=== PATIENT | female | born 2000 | race African-American/Black ===

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

== ENCOUNTER 2021-09-22 17:43 | Emergency (ER) | payer OTHER ==
[2021-09-22 18:37] LABS: Urine Blood 2+ (Negative); Urine Glucose Negative (Negative); Urine Protein Negative (Negative); Urine Specific Gravity >=1.030 (1.005-1.030)
[2021-09-22 18:42] LABS: Absolute Lymphocytes (CBC) 2.1 K/uL (0.7-4.9); Basophils % 0.6 % (0-1.3); Hematocrit 34.9 % (36.0-45.0); Lymphocytes % 44.5 % (15.3-44.8); MPV 8.3 fL (7.6-11.3); RBC Red Blood Cell Count 4.18 M/uL (3.86-4.86)
[2021-09-22 19:21] LABS: BUN Blood Urea Nitrogen 7 mg/dL (7-18); Bicarbonate 26 mmol/L (21-32); Glucose Level 83 mg/dL (74-106); HCG, Quantitative 1036 mIU/mL (1-3); Potassium 3.6 mmol/L (3.5-5.1); Sodium Level 140 mmol/L (136-145)
--- NOTE | 2021-09-22 20:03 | RAD REPORT ---
EXAM DESCRIPTION: US - Transvaginal OB - 09/22/2021 7:29 pm CLINICAL HISTORY: Abd cramping, ;Vaginal bleeding COMPARISON: <Comparisons> FINDINGS: No normal IUP identified. Thickened endometrium measuring 11 millimeters. Irregular cystic structure located in the lower uterine segment. The right ovary measures 2 cm x 1.6 cm x 1.9 cm with volume of 3.1 cc. The left ovary measures 1.8 cm x 1.6 cm x 1.7 cm with volume of 2.5 cc . Bilateral ovarian blood flow. IMPRESSION: No normal IUP identified. Irregular cystic structure in the lower uterine segment could reflect a failed first trimester but suggest correlating with b-HCG and short term follow-u p ultrasound.
--- NOTE | 2021-09-22 20:14 | EDPHYS ---
Physician Documentation [facility] Name: Leonila Guardado Age: 21 yrs Sex: Female : 2000 Arrival Date: 09/22/2021 Time: 17:44 Bed 14 Private MD: Andrew Cage B ED Physician Anastacio Lucio HPI: 09/22 19:31 This 21 yrs old Black Female presents to ER via Ambulatory with complaints of Vaginal jr8 Bleeding, + Preg <12wks, Pelvic Pain. 19:31 The patient presents to the emergency department with vaginal bleeding, that is light, jr8 with clots. The estimated gestational age is 7 weeks. course: care: none, Leakage of Fluid: none appreciated, Ultrasound: the patient has not had an ultrasound, Risk/complications: no obvious risks or complications are appreciated. Previous pregnancies: in previous pregnancies patient has had vaginal delivery. Associated signs and symptoms: The patient has no apparent associated signs or symptoms. The patient has experienced a previous episode. The patient has not recently seen a physician. Patient stated that she has had 24 hours of bleeding and cramping. Has had this in one other in the past which ended up in spontaneous . . 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 - Social history:: Smoking status: Reported history of juuling and/or vaping. Patient uses street drugs, marijuana. ROS: 19:31 Eyes: Negative for injury, pain, redness, and discharge, ENT: Negative for injury, jr8 pain, and discharge, Neck: Negative for injury, pain, and swelling, Cardiovascular: Negative for chest pain, palpitations, and edema, Respiratory: Negative for shortness of breath, cough, wheezing, and pleuritic chest pain, Abdomen/GI: Negative for abdominal pain, nausea, vomiting, diarrhea, and constipation, Back: Negative for injury and pain, MS/Extremity: Negative for injury and deformity, Skin: Negative for injury, rash, and discoloration, Neuro: Negative for headache, weakness, numbness, tingling, and seizure. 19:31 : Positive for pelvic pain, vaginal bleeding. Exam: 19:31 Constitutional: This is a well developed, well nourished patient who is awake, alert, jr8 and in no acute distress. Cardiovascular: Regular rate and rhythm with a normal S1 and S2. No gallops, murmurs, or rubs. Normal PMI, no JVD. No pulse deficits. Respiratory: Lungs have equal breath sounds bilaterally, clear to auscultation and percussion. No rales, rhonchi or wheezes noted. No increased work of breathing, no retractions or nasal flaring. Abdomen/GI: Soft, non-tender, with normal bowel sounds. No distension or tympany. No guarding or rebound. No evidence of tenderness throughout. Back: No spinal tenderness. No costovertebral tenderness. Full range of motion. Skin: Warm, dry with normal turgor. Normal color with no rashes, no lesions, and no evidence of cellulitis. MS/ Extremity: Pulses equal, no cyanosis. Neurovascular intact. Full, normal range of motion. Neuro: Awake and alert, GCS 15, oriented to person, place, time, and situation. Cranial nerves II-XII grossly intact. Motor strength 5/5 in all extremities. Sensory grossly intact. Vital Signs: 18:09 BP 113 / 90; Pulse 84; Resp 16; Temp 97.9; Pulse Ox 100% ; Weight 57.15 kg; Height 5 vg1 ft. 7 in. (170.18 cm); Pain 6/10; 18:25 BP 118 / 92; Pulse 80; Resp 18; Pulse Ox 100% on R/A; ld1 19:42 BP 121 / 88; Pulse 76; Resp 18; Pulse Ox 100% on R/A; ld1 18:09 Body Mass Index 19.73 (57.15 kg, 170.18 cm) vg1 MDM: 18:13 Patient medically screened. jr8 19:31 Data reviewed: vital signs, nurses notes, lab test result(s), radiologic studies, 8 ultrasound. Data interpreted: Pulse oximetry: on room air is 100 %. Interpretation: normal. Counseling: I had a detailed discussion with the patient and/or guardian regarding: the historical points, exam findings, and any diagnostic results supporting the discharge/admit diagnosis, lab results, radiology results. 20:14 ED course: Discussed with patient that this is most likely an incomplete . jr8 Needs f/u to have repeat HCG and US in by end of week. Patient understood and knows to come back if bleeding were to worsen or she feel worse . 09/22 18:14 Order name: Abo/rh Typing [facility] 09/22 18:14 Order name: Basic Metabolic Panel [facility] 09/22 18:14 Order name: CBC with Diff; Complete Time: 19:33 8 09/22 18:14 Order name: Quantitative Hcg; Complete Time: 19:33 [facility] 09/22 18:15 Order name: ABO/RH typing; Complete Time: 18:56 EDMS 09/22 18:15 Order name: Basic Metabolic Panel; Complete Time: 19:33 EDMS 09/22 18:14 Order name: IV Saline Lock; Complete Time: 18:37 [facility] 09/22 18:14 Order name: Labs collected and sent; Complete Time: 18:37 [facility] 09/22 18:14 Order name: NPO; Complete Time: 18:19 [facility] 09/22 18:14 Order name: Urine Dipstick-Ancillary (obtain specimen); Complete Time: 18:36 [facility] 09/22 18:14 Order name: Urine Test (obtain specimen); Complete Time: 18:36 [facility] 09/22 18:37 Order name: Urine --Ancillary (enter results) 09/22 18:37 Order name: Urine Dipstick-Ancillary; Complete Time: 18:43 EDMT 09/22 18:44 Order name: US Transvaginal Ob; Complete Time: 20:09 jr Administered Medications: No medications were administered Disposition: 09/23 07:06 Co-signature as Attending Physician, Anastacio Lucio MD I agree with the assessment and negin plan of care. Disposition Summary: 09/22/21 20:13 Discharge Ordered Location: Home [facility] Problem: new jr8 Symptoms: have improved jr8 Condition: Stable jr8 Diagnosis - Incomplete spontaneous without complication jr8 Followup: jr8 - With: Andrew Cage MD - When: 2 - 3 days - Reason: Recheck today's complaints, Continuance of care, Re-evaluation by your physician Discharge Instructions: - Discharge Summary Sheet jr8 - Incomplete Miscarriage jr8 Forms: - Medication Reconciliation Form jr8 - Thank You Letter jr8 - Antibiotic Education jr8 - Prescription Opioid Use jr8 Signatures: Dispatcher [employer] Anastacio Roa MD MD cha Roszak, Josh, PA PA jr8 Saima Sesay, RN RN vg1
--- NOTE | 2021-09-22 20:14 | ER ---
Nurse's Notes [facility] Name: Leonila Guardado Age: 21 yrs Sex: Female : 2000 Arrival Date: 09/22/2021 Time: 17:44 Bed 14 Private MD: Andrew Cage B Diagnosis: Incomplete spontaneous without complication Presentation: 09/22 18:09 Chief complaint: Patient states: bleeding and cramping began yesterday; states light vg1 flow that is pinkish/red in color with small clots, states is approximately 7 weeks according to tracker. states LMP was 07/06/21 and took test on 09/07/21 and results were positive. pt has not seen a NUCLEAR MEDICINE TECHNOLOGIST. Coronavirus screen: Vaccine status: Patient reports receiving the 2nd dose of the covid vaccine. Ebola Screen: Patient negative for fever greater than or equal to 101.5 degrees Fahrenheit, and additional compatible Ebola Virus Disease symptoms. Initial Sepsis Screen: Does the patient meet any 2 criteria? No. Patient's initial sepsis screen is negative. Does the patient have a suspected source of infection? No. Patient's initial sepsis screen is negative. Risk Assessment: Do you want to hurt yourself or someone else? Patient reports no desire to harm self or others. Onset of symptoms was September 21, 2021. 18:09 Method Of Arrival: Ambulatory vg1 18:09 Acuity: LINA 3 vg1 Triage Assessment: 18:11 General: Appears in no apparent distress. uncomfortable, Behavior is calm, cooperative. vg1 Pain: Complains of pain in lower ABD Pain currently is 6 out of 10 on a pain scale. Quality of pain is described as crampy, pressure. : Reports vaginal bleeding that is bright red, with clots, light flow. 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 - Social history:: Smoking status: Reported history of juuling and/or vaping. Patient uses street drugs, marijuana. Screenin:25 Abuse screen: Denies threats or abuse. Denies injuries from another. Nutritional ld1 screening: No deficits noted. Tuberculosis screening: No symptoms or risk factors identified. Fall Risk None identified. Assessment: 18:25 Obstetrical Assessment:. General: Appears in no apparent distress. comfortable, ld1 Behavior is calm, cooperative, appropriate for age. Pain: Denies pain. Neuro: Level of Consciousness is awake, alert, obeys commands, Oriented to person, place, time, situation. Cardiovascular: Capillary refill < 3 seconds Patient's skin is warm and dry. Respiratory: Airway is patent Respiratory effort is even, unlabored, Respiratory pattern is regular, symmetrical. GI: Abdomen is flat, non-distended. : Reports vaginal bleeding that is bright red, moderate flow. EENT: No signs and/or symptoms were reported regarding the EENT system. Derm: No signs and/or symptoms reported regarding the dermatologic system. Musculoskeletal: No signs and/or symptoms reported regarding the musculoskeletal system. Vital Signs: 18:09 BP 113 / 90; Pulse 84; Resp 16; Temp 97.9; Pulse Ox 100% ; Weight 57.15 kg; Height 5 vg1 ft. 7 in. (170.18 cm); Pain 6/10; 18:25 BP 118 / 92; Pulse 80; Resp 18; Pulse Ox 100% on R/A; ld1 19:42 BP 121 / 88; Pulse 76; Resp 18; Pulse Ox 100% on R/A; ld1 18:09 Body Mass Index 19.73 (57.15 kg, 170.18 cm) vg1 ED Course: 17:44 Patient arrived in ED. as 17:44 Andrew Cage MD is Private Physician. as 18:11 Triage completed. vg1 18:11 Arm band placed on. vg1 18:13 Eduard Rojas PA is PHCP. jr8 18:13 Anastacio Lucio MD is Attending Physician. jr8 18:23 Katerine Meier, AYLIN is Primary Nurse. ld1 18:25 Patient has correct armband on for positive identification. Placed in gown. Bed in low ld1 position. Call light in reach. Side rails up X2. Pulse ox on. NIBP on. Door closed. Noise minimized. Warm blanket given. 18:25 No provider procedures requiring assistance completed. ld1 18:37 Inserted saline lock: 20 gauge in left antecubital area, using aseptic technique. Blood ld1 collected. 19:29 Transvaginal Ob In Process Unspecified. EDMS 20:10 Andrew Cage MD is Referral Physician. jr8 20:22 IV discontinued, intact, bleeding controlled, No redness/swelling at site. ld1 Administered Medications: No medications were administered Outcome: 20:13 Discharge ordered by . jr8 20:22 Discharged to home ambulatory, with family. ld1 20:22 Condition: stable 20:22 Discharge instructions given to patient, Instructed on discharge instructions, follow up and referral plans. Demonstrated understanding of instructions, follow-up care. 20:22 Patient left the ED. ld1 Signatures: Dispatcher [employer] [facility]VA Liv Matute Josh, PA PA jr8 Saima Sesay, RN RN vg1 Katerine Meier RN RN ld1
[2021-09-22 20:30] VITALS: TEMP 97.9; O2SAT 100
[2021-09-22 20:33] LABS: Urine Specific Gravity/Preg >1.030 (1.005-1.030)
[2021-09-22 20:34] VITALS: BP 121/88
== END 2021-09-22 20:22 | disposition home or self-care (01) ==
LOC: ER 17:43
DX: O03.9 Complete or unspecified spontaneous abortion without complication (principal)
CPT/HCPCS: 36415; 76817; 80048; 81003; 81025; 84702; 85025; 86900; 86901; 99284

== ENCOUNTER 2022-05-22 20:31 | Emergency (ER) | payer OTHER ==
--- OUTSIDE RECORDS SUMMARY | 2022-05-22 20:34 | XMS REPORT | Continuity of Care Document ---
:2000 Author Organization [facility] t Address [address] [place] [address] Dr. [address] [place] [address] Care Team Providers Name Role Phone Ann Couch Primary Care Physician Love Manzanares MD Attending Clinician Nurse, [facility] Women's [facility] Attending Clinician Unavailable LOVE MANZANARES Attending Clinician Unavailable LOVE MANZANARES Admitting Clinician Unavailable Love Manzanares MD Admitting Clinician Payers Payer Name Policy Type Policy Number Effective Date Expiration Date Formerly [facility] [id number] 2022 [facility] MEDICAID 00:00:00 Problems This patient has no known problems. Allergies, Adverse Reactions, Alerts Allergy Allergy Status Severity Reaction(s) Onset Inactive Treating Comm ents Source Name Type Date Date Clinician NO KNOWN Drug Active Univers ALLERGIE Class ity of S [facility] Social History Social Habit Start Date Stop Date Quantity Comments Source ASSERTION 2021-10-06 [facility] 00:00:00 [facility] Exposure to 2022-02-06 2022-02-16 Not sure [facility] SARS-CoV-2 (event) 00:00:00 11:13:00 Medica l Branch Sex Assigned At [birth year] [facility] 00:00:00 00:00:00 [facility] Smoking Status Start Date Stop Date Source Unknown if ever smoked [facility] Medications Ordered Filled Start Stop Current Ordering Indication Dosage Frequency Signature Comments Components Source Medication Medication Date Date Medication? Clinician (SIG) Name Name cefTRIAXone 2021- No [id number] 500mg Univers (ROCEPHIN) 02-16 ity of injection 17:45: 16:36 [place] 500 mg 00 :00 Medical Branch cefTRIAXone 2021- No [id number] 500mg 500 mg, Univers (ROCEPHIN) 02-16 Intramuscu it y of injection 17:45: 16:36 [place]CE, [place] 500 mg 00 :00 1 dose, On Medical 02/16/22 Branch at 1245, RAYMOND
Re ason for Anti-Infec tive: Documented Infection< br>Documen bobby Infection Site: Pelvic
Duration of Therapy: 7 days PNV Yes Take by Univers no.95/arianna 5-02 mouth. ity of 11:30: [place] fum/folic [address] [place] [address] ( ORAL) PNV Yes Take by Univers no.95/arianna 5-02 mouth. ity of 11:30: [place] fum/folic 09 [facility] ( ORAL) PNV Yes Take by Univers no.95/arianna 5-02 mouth. ity of 11:30: [place] fum/folic 09 [facility] ( ORAL) Nitrofurant 2021- No 100mg 100 mg, U nivers oin&Nit. 02-12 Oral, ity of [place] 23:45: 22:55 ONCE, 1 Aidan as (MACROBID) 00 :00 dose, On Medic al 100 mg [facility] Branch capsule 100 02/12/22 at mg 1845, Routine
Reason for Anti-Infec tive: Empiric Therapy for Suspected Infection< br>Empiric Therapy Site: Urine
D uration of therapy: 7 days D5W-LR IV Yes 1000mL at 150 Univ ers infusion -28 mL/hr, IV ity of 1,000 mL 20:45: [place] CONTINUOUS Medical , Starting Branch on Radha 02/12/22 at 1545, Until Discontinu ed, Routine NaCl 0.9% 2021- No 500mL at 999 Univ ers (NS) bolus 02-12- mL/hr, 500 it y of infusion 20:45: 20:30 mL, IV [place] 500 mL 00 :00 Infusion, Medical ONCE, 1 Branch dose, On Radha 02/12/22 at 1545, STAT metoclopram 0 Yes 10mg 10 mg, Univ ers naa HCl 02-12 Slow IV ity of (REGLAN) 19:48: Push, [place] injection 00 Q6HPRN, Medical 10 mg Starting Branch on Radha 02/12/22 at 1448, Until Discontinu ed, Routine, Nausea and Vomiting (N/V) Nitrofurant 2021-0 Yes [id number] 100mg Take 1 Univers oin&Nit. 4-28 capsule by ity o f [place] 00:[place]: mouth 2 [place] 100 mg 00 (two) Medical capsule times Branch daily. Nitrofurant 2021-0 Yes [id number] 100mg Take 1 Univers oin&Nit. 4-28 capsule by ity o f [place] 00:[place]: mouth [place] 100 mg 00 (two) Medical capsule times Branch daily. Nitrofurant 2021-0 Yes [id number] 100mg Take 1 Univers oin&Nit. 4-28 capsule by ity o f [place]: mouth [place] 100 mg 00 (two) Medical capsule times Branch daily. Nitrofurant 2021-0 Yes [id number] 100mg Take 1 Univers oin&Nit. 4-28 capsule by ity o f [place] 00:00: mouth [place] 100 mg 00 (two) Medical capsule times Branch daily. Vital Signs Vital Name Observation Time Observation Value Comments Source Systolic blood 2022-02-16 16:28:00 103 mm[Hg[facility] Diastolic blood 2022-02-16 16:28:00 65 mm[Hg] [facility] Body temperature 2022-02-16 16:28:00 36.83 Yajaira [facility] Respiratory rate 2022-02-16 16:28:00 18 /min [facility] Body height 2022-02-16 16:28:00 170.2 cm [facility] Body weight 2022-02-16 16:28:00 59.875 kg [facility] BMI 2022-02-16 16:28:00 20.67 kg/m2 [facility] Branch Systolic blood 2022-02-12 18:37:00 116 mm[Hg] Univer sity of pressure [facility] Diastolic blood 2022-02-12 18:37:00 67 mm[Hg] [facility] Heart rate 2022-02-12 18:37:00 90 /min [facility] Respiratory rate 2022-02-12 18:37:00 16 /min [facility] Body height 2022-02-12 18:37:00 172.7 cm Universi [facility] Body weight 2022-02-12 18:37:00 [facility] 2022-02-12 18:37:00 20.19 kg/m2 [facility] Body temperature 2022-02-12 18:03:00 36.39 Yajaira [facility] Oxygen saturation in 2022-02-12 18:03:00 100 /min [facility] blood by [facility] Pulse oximetry Branch Procedures Procedure Date / Time Performed Performing Clinician Sourc e AMYLASE 2022-02-12 20:31:00 Love Manzanares [facility] LIPASE 2022-02-12 20:31:00 Jose [facility] COMP. METABOLIC PANEL 2022-02-12 20:31:00 Love Manzanares [facility] ([id number]) Medical Branch CBC WITH DIFF 2022-02-12 20:31:00 Love Manzanares [facility] URINALYSIS 2022-02-12 20:31:00 Cielo Manzanaresen Julian [facility] COVID-19 (ID NOW RAPID 2022-02-12 20:31:00 Love Manzanares [facility] TESTING) Medical Branch CONSENT/REFUSAL FOR 2022-02-12 18:03:32 Doctor Unassigned, [facility] AND Name Medical Branch TREATMENT NOTICE OF PRIVACY 2022-02-12 17:48:58 Doctor Unassigned, No Univ [facility] PRACTICES Name Medical Branch Encounters Start End Encounter Admission Attending Care Care Encounter Source Date/Time Date/Time Type Type Clinicians Facility Department ID 2022-02-16 Outpatient X [facility] [id number] Univers 11:29:47 ity of [facility] 2022-02-18 2022-02-18 Telephone Love Manzanares MOEDY [facility] [id number] Univers 00:00:00 00:00:00 Julian CODY [id number] it [place] [facility] [place] [facility] [id number] [address] 2022-02-16 2022-02-16 Nurse Nurse, [facility] [id number] Univers 10:30:00 11:41:01 [id number].686 [facility] [id number] [address] 2022-02-16 2022-02-16 Outpatient R LOVE MANZANARES [facility] [id number] Univers 10:30:00 10:30:00 ity of [facility] 2022-02-16 2022-02-16 Letter Nurse, [facility] [id number] Univers 00:00:00 00:00:00 (Out) [facility] [id number] i ty [facility] 4.2.7.2.686 [id number] [address] 2022-02-12 2022-02-12 Outpatient X LOVE MANZANARES [facility] [place] [id number] Univers 13:14:00 18:18:00 ity of [facility] 2022-02-12 2022-02-12 Emergency Love Manzanares [facility] [id number] Univers 13:14:00 18:18:00 Julian MOCK [id number] i ty [facility] [place] [id number] [address] Results Test Description Test Time Test Comments Results Result Comments Source COMP. METABOLIC PANEL ([id number]) 2022-02-12 21:10:59 Test Item Value Reference Range Interpretation Comme nts NA (test code = 2505199860) 134 mmol/L 135-145 L K (test code = 9442603030) 4.1 mmol/L 3.5-5.0 CL (test code = 7260507640) 101 mmol/L 98-108 CO2 TOTAL (test code = 1819993239) 25 mmol/L 23-31 AGAP (test code = 1931267432) 2-16 BUN (test code = 5752945643) 4 mg/dL 7-23 L GLUCOSE (test code = 8038511099) 78 mg/dL 70-110 CREATININE (test code = 0.46 mg/dL 0.50-1.04 L 6350236341) TOTAL BILI (test code = 0.5 mg/dL 0.1-1.6 7220632730) CALCIUM (test code = 3764785062) 8.8 mg/dL 8.6-10.6 T PROTEIN (test code = 0011591607) 7.8 g/dL 6.3-8.2 ALBUMIN (test code = 3158602466) 4.1 g/dL 3.5-5.0 ALK PHOS (test code = 9357884317) 66 U/L 34-122 ALTv (test code = 1742-6) 12 U/L 5-35 AST(SGOT) (test code = 4201277122) 24 U/L 13-40 eGFR (test code = 4110749059) mL/min/1.73m2 SONALI (test code = SONALI) Association of Glomerular Filtration Rate (GFR) and Staging of Kidney Disease* + +-------- + ------+| GFR (mL/min/1.73 m2) ?| With Kidney Damage ?| ?Without Kidney Damage+ +-- + +| ?>90 ?| ?Stage one ?| ? Normal ?+ +------- + -------+| ?60-89 ?| ?Stage two ?| ? Decreased GFR ? + +-------- + ------+| ?30-59 ?| ?Stage three ?| ? Stage three ? + +-------- + ------+| ?15-29 ?| ?Stage four ? | ? Stage four ?+ +------- + -------+| ?<15 (or dialysis) ? ?| ?Stage five ? | ? Stage five ?+ +------- + -------+ *Each stage assumes the associated GFR level has been in effect for at least three months. ?Stages 1 to 5, with or without kidney disease, indicate chronic kidney disease. Notes: Determination of stages one and two (with eGFR >59mL/min/1.73 m2) requires estimation of kidney damage for at least three months as defined by structural or functional abnormalities of the kidney, manifested by either:Pathological abnormalities or Markers of kidney damage (including abnormalities in the composition of the blood or urine or abnormalities in imaging tests). Lab Interpretation (test code = Abnormal 73145-5) [facility] 21[facility]10:44 Test Item Value Reference Range Interpretation Comments LIPASE (test code = 4664814634) 43 U/L 0-220 Lab Interpretation (test code = Normal 45915-8) [facility] 21:10:03 Test Item Value Reference Range Interpretation Comments NICOLA (test code = 9878869942) 78 U/L 35-110 Lab Interpretation (test code = Normal 30487-5) [facility] WITH [id number] 21:01:00 Test Item Value Reference Range Interpretation Comments WBC (test code = See_Comment [Automated 6690-2) message] The sy stem which generated this result transmitted reference range : 4.30 - 11.10 10*3/?L. The reference range was not used to interpret this result as normal/abnormal . RBC (test code = See_Comment L [Automated 789-8) message] The sy stem which generated this result transmitted reference range : 3.93 - 5.25 10*6/?L. The reference range was not used to interpret this result as normal/abnormal . HGB (test code = 10.0 g/dL 11.6-15.0 L 718-7) HCT (test code = 32.0 % 35.7-45.2 L 4544-3) MCV (test code = 86.3 fL 80.6-95.5 787-2) MCH (test code = 27.0 pg 25.9-32.8 785-6) MCHC (test code = 31.3 g/dL 31.6-35.1 L 786-4) RDW-SD (test code = 43.9 fL 39.0-49.9 14898-4) RDW-CV (test code = 14.1 % 12.0-15.5 788-0) PLT (test code = See_Comment [Automated 777-3) message] The sy stem which generated this result transmitted reference range : 166 - 358 10*3/ ?L. The reference r carmel was not used to interpret this result as normal/abnormal . MPV (test code = 10.8 fL 9.5-12.9 30840-5) NRBC/100 WBC (test See_Comment [Automat ed code = 7872231973) message] The system which generated this result transmitted reference range : 0.0 - 10.0 /100 WBCs. The refer ence range was not u sed to interpret th is result as normal/abnormal . NRBC x10^3 (test code <0.01 See_Comment [Auto mated = 6195844496) message] The s ystem which generated this result transmitted reference range : 10*3/?L. The reference range was not used to interpret this result as normal/abnormal . GRAN MAT (NEUT) % 83.9 % (test code = 770-8) IMM GRAN % (test code 0.40 % = 7190613756) LYMPH % (test code = 9.1 % 736-9) MONO % (test code = 5.8 % 5905-5) EOS % (test code = 0.7 % 713-8) BASO % (test code = 0.1 % 706-2) GRAN MAT x10^3(ANC) 6.25 10*3/uL 1.88-7.09 (test code = 1095192023) IMM GRAN x10^3 (test 0.03 10*3/uL 0.00-0.06 code = 9191241687) LYMPH x10^3 (test code 0.68 10*3/uL 1.32-3.29 L = 731-0) MONO x10^3 (test code 0.43 10*3/uL 0.33-0.92 = 742-7) EOS x10^3 (test code = 0.05 10*3/uL 0.03-0.39 711-2) BASO x10^3 (test code <0.03 0.01-0.07 = 704-7) Lab Interpretation Abnormal (test code = 66093-3) [facility]"
--- NOTE | 2022-05-22 22:00 | RAD REPORT ---
EXAM DESCRIPTION: USExtremity Venous Uni Ltd05/22/2022 9:45 pm CLINICAL HISTORY: left leg pain COMPARISON: None FINDINGS: Left common femoral, superficial femoral, popliteal and posterior tibial veins are compre ssible and demonstrate augmentation. Rouleaux flow is present within the veins. Grayscale, color and spectral analysis performed on all vessels IMPRESSION: No evidence of deep venous thrombosis involving the left lower extremity. Rouleaux flow is present within the veins. This is often insignificant. If the patient's symptoms do not resolve then a followup ultrasound would be recommended
--- NOTE | 2022-05-22 22:24 | ER ---
Nurse's Notes [facility] Name: Leonila Guardado Age: 22 yrs Sex: Female : 2000 Arrival Date: 05/22/2022 Time: 20:33 Bed 13 Private MD: Diagnosis: Pain in left lower leg Presentation: 05/22 20:41 Chief complaint: Patient states: pain in left calf starting 2 days ago and getting lg3 worse. i was seen by OB today and sent home with order for venous ultrasound that i was going to schedule but the pain is getting worse and its hard for me to walk now. currently 34 weeks . seen by L\T\D before arrival to ED. Coronavirus screen: Client denies travel out of the [place] in the last 14 days. At this time, the client does not indicate any symptoms associated with coronavirus-19. Ebola Screen: No symptoms or risks identified at this time. Initial Sepsis Screen: Does the patient meet any 2 criteria? No. Patient's initial sepsis screen is negative. Does the patient have a suspected source of infection? No. Patient's initial sepsis screen is negative. Risk Assessment: Do you want to hurt yourself or someone else? Patient reports no desire to harm self or others. Onset of symptoms was May 20, 2022. 20:41 Method Of Arrival: Wheelchair lg3 20:41 Acuity: LINA 3 lg3 Triage Assessment: 20:46 General: Appears in no apparent distress. uncomfortable, Behavior is calm, cooperative. lg3 Pain: Complains of pain in left calf. EENT: No deficits noted. No signs and/or symptoms were reported regarding the EENT system. Neuro: No deficits noted. Level of Consciousness is awake, alert, obeys commands, Oriented to person, place, time, situation. Cardiovascular: No deficits noted. Denies chest pain, shortness of breath, Capillary refill < 3 seconds Clubbing of nail beds is absent JVD is absent Patient's skin is warm and dry. Respiratory: No deficits noted. Airway is patent Trachea midline Respiratory effort is even, unlabored, Respiratory pattern is regular, symmetrical. GI: No deficits noted. No signs and/or symptoms were reported involving the gastrointestinal system. : No deficits noted. No signs and/or symptoms were reported regarding the genitourinary system. Derm: No deficits noted. No signs and/or symptoms reported regarding the dermatologic system. Skin is intact, is healthy with good turgor, Skin is dry, Skin temperature is warm. Musculoskeletal: Reports pain in left calf. 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 - Social history:: Smoking status: Patient denies any tobacco usage or history of. Patient/guardian denies using alcohol, street drugs. Screenin:48 Abuse screen: Denies threats or abuse. Nutritional screening: No deficits noted. ll3 Tuberculosis screening: No symptoms or risk factors identified. Fall Risk None identified. Assessment: 21:48 General: Appears comfortable, Behavior is calm, cooperative. Pain: Pain currently is 0 ll3 out of 10 on a pain scale. at worst was 10 out of 10 on a pain scale. Aggravated by Flexing calf muscle, and walking. Neuro: Level of Consciousness is awake, alert, obeys commands, Oriented to person, place, time, situation. Derm: Skin is pink, warm \T\ dry. Musculoskeletal: Circulation, motion, and sensation intact. Reports pain in left calf. Vital Signs: 20:41 BP 107 / 72; Pulse 90; Resp 17 S; Temp 98.2(O); Pulse Ox 100% on R/A; Weight 65.32 kg lg3 (R); Height 5 ft. 8 in. (172.72 cm) (R); Pain 10/10; 20:41 Body Mass Index 21.89 (65.32 kg, 172.72 cm) lg3 ED Course: 20:33 Patient arrived in ED. bp1 20:46 Triage completed. lg3 20:46 Arm band placed on right wrist. lg3 21:04 Berto Forbes NP is PHCP. pm1 21:04 Lui Cuello MD is Attending Physician. pm1 21:47 Extremity Venous Uni Ltd US In Process Unspecified. EDMS 21:48 Patient has correct armband on for positive identification. Bed in low position. Call ll3 light in reach. Side rails up X 1. 21:50 Pineda Veengas, RN is Primary Nurse. ll3 22:33 No provider procedures requiring assistance completed. Patient did not have IV access ll3 during this emergency room visit. Administered Medications: No medications were administered Medication: 22:33 VIS not applicable for this client. ll3 Outcome: 22:24 Discharge ordered by MD. pm1 22:33 Discharged to home ambulatory, with family. ll3 22:33 Condition: stable 22:33 Discharge instructions given to patient, family, Instructed on discharge instructions, follow up and referral plans. Demonstrated understanding of instructions, follow-up care. 22:33 Patient left the ED. ll3 Signatures: Dispatcher [employer] EDMO Berto Forbes, RECREATIONAL VEHICLE REPAIRER RECREATIONAL VEHICLE REPAIRER pm1 Beryl Mcgovern, RN RN lg3 Aletha Ramirez Lynsea, RN RN ll3 Corrections: (The following items were deleted from the chart) 20:50 20:41 Chief complaint: Patient states: pain in left calf starting 2 days ago and lg3 getting worse. i was seen by OB today and sent home with order for venous ultrasound that i was going to schedule but the pain is getting worse and its hard for me to walk now. lg3
--- NOTE | 2022-05-22 22:24 | EDPHYS ---
Physician Documentation [facility] Name: Leonila Guardado Age: 22 yrs Sex: Female : 2000 Arrival Date: 05/22/2022 Time: 20:33 Bed 13 Private MD: ED Physician Lui Cuello HPI: 05/22 21:17 This 22 yrs old Black Female presents to ER via Wheelchair with complaints of Leg Pain. pm1 21:17 The patient presents with pain, that is acute. The complaints affect the left calf. pm1 Context: The problem was sustained at an unknown site, resulted from an unknown cause, the patient can fully bear weight, the patient is able to ambulate. Onset: The symptoms/episode began/occurred 2 day(s) ago. Modifying factors: the symptoms are aggravated by weight bearing, walking. Associated signs and symptoms: Pertinent negatives numbness, swelling, tingling. Treatment prior to arrival includes: no previous treatment. Severity of symptoms: in the emergency department the symptoms are unchanged. The patient has not experienced similar symptoms in the past. 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 patient in L\T\D prior to arrival for evaluation of fetus then sent to the ER for rule out DVT. 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 - Social history:: Smoking status: Patient denies any tobacco usage or history of. Patient/guardian denies using alcohol, street drugs. ROS: 21:20 Constitutional: Negative for fever, chills, and weight loss, Cardiovascular: Negative pm1 for chest pain, palpitations, and edema, Respiratory: Negative for shortness of breath, cough, wheezing, and pleuritic chest pain, Abdomen/GI: Negative for abdominal pain, nausea, vomiting, diarrhea, and constipation, Back: Negative for injury and pain. 21:20 Skin: Negative for injury, rash, and discoloration, Neuro: Negative for headache, weakness, numbness, tingling, and seizure. 21:20 MS/extremity: Positive for pain, of the left calf, Negative for decreased range of motion, deformity. 21:20 All other systems are negative. Exam: 21:20 Constitutional: This is a well developed, well nourished patient who is awake, alert, pm1 and in no acute distress. Head/Face: Normocephalic, atraumatic. 21:20 Skin: Warm, dry with normal turgor. Normal color with no rashes, no lesions, and no evidence of cellulitis. 21:20 Cardiovascular: Exam negative for acute changes, Rate: normal, Rhythm: regular, Pulses: no pulse deficits are appreciated. 21:20 Respiratory: Exam negative for acute changes, respiratory distress, shortness of breath. 21:20 Musculoskeletal/extremity: Extremities: grossly normal except: noted in the left calf: tenderness, There is no evidence of swelling, ROM: intact in all extremities. 21:20 Neuro: Exam negative for acute changes, Orientation: is normal, Mentation: is normal, Motor: is normal, moves all fours. Vital Signs: 20:41 BP 107 / 72; Pulse 90; Resp 17 S; Temp 98.2(O); Pulse Ox 100% on R/A; Weight 65.32 kg lg3 (R); Height 5 ft. 8 in. (172.72 cm) (R); Pain 10/10; 20:41 Body Mass Index 21.89 (65.32 kg, 172.72 cm) lg3 MDM: 21:04 Patient medically screened. pm1 21:17 Data reviewed: vital signs. Data interpreted: Pulse oximetry: on room air is 100 %. pm1 Interpretation: normal. 22:21 Counseling: I had a detailed discussion with the patient and/or guardian regarding: the pm1 historical points, exam findings, and any diagnostic results supporting the discharge/admit diagnosis, radiology results, Recommended CBC and BMP with IV fluids after discussing ultrasound results. Patient reports possibly not drinking enough fluids and I believe that might be a cause for her Rouleau's flow on ultrasound. Explained to patient IV fluids and hydration would likely reverse that condition. Patient did not want an IV or IV fluids and wanted to drink fluid at home. Patient's mother present at bedside. I gave patient a copy of ultrasound, if no improvement resolution of symptoms with p.o. hydration at home recommending follow-up ultrasound. 05/22 21:09 Order name: Extremity [employer]ous [employer] US; Complete Time: 22:07 pm1 Administered Medications: No medications were administered Disposition: 05/23 07:08 Co-signature as Attending Physician, Lui Cuello MD. [email or web address] Disposition Summary: 05/22/22 22:24 Discharge Ordered Location: Home pm1 Problem: new pm1 Symptoms: have improved pm1 Condition: Stable pm1 Diagnosis - Pain in left lower leg pm1 Followup: pm1 - With: Emergency Department - When: As needed - Reason: Worsening of condition Followup: pm1 - With: Private Physician - When: 2 - 3 days - Reason: Recheck today's complaints, Continuance of care, Re-evaluation by your physician Discharge Instructions: - Discharge Summary Sheet pm1 - Musculoskeletal Pain pm1 Forms: - Medication Reconciliation Form pm1 - Thank You Letter pm1 - Antibiotic Education pm1 - Prescription Opioid Use pm1 Signatures: Dispatcher [employer] Berto Castellanos, SAM APPLIED PSYCHOLOGY TEACHER pm1 Beryl Mcgovern, AYLIN RN lg3 Lui Cuello MD MD [email or web address]
[2022-05-23 00:56] VITALS: BP 107/72; TEMP 98.2; O2SAT 100
== END 2022-05-22 22:33 | disposition home or self-care (01) ==
LOC: ER 20:31
DX: O26.893 Other specified pregnancy related conditions, third trimester (principal); Z3A.34 34 weeks gestation of pregnancy
CPT/HCPCS: 93971; 99283